=== PATIENT | female | born 1950 | race African-American/Black ===

== ENCOUNTER → 2017-01-26 | Outpatient (CLI) | payer OTHER, MEDICAID ==
[2016-06-29 14:38] VITALS: BP 152/84
[2017-01-26 12:08] LABS: BASOPHILS % (AUTO) 0.9 % (0.2-1.0); EOSINOPHILS # (AUTO) 0.1 x10^3/uL (0.0-0.2); EOSINOPHILS % (AUTO) 2.4 % (0.9-2.9); HEMOGLOBIN 13.5 g/dL (12.0-16.0); LYMPHOCYTES # (AUTO) 1.4 X10^3/uL (1.3-2.9); LYMPHOCYTES % (AUTO) 33.9 % (21.0-51.0); MEAN CORPUSCULAR HEMOGLOBIN 32.1 pg (27.0-34.0); MEAN CORPUSCULAR HGB CONC 34.6 g/dL (33.0-35.0); MEAN CORPUSCULAR VOLUME 92.9 fL (80.0-100.0); MONOCYTES # (AUTO) 0.3 x10^3/uL (0.3-0.8); NEUTROPHILS # (AUTO) 2.2 x10^3/uL (2.2-4.8); NEUTROPHILS % (AUTO) 54.8 % (42.0-75.0); PLATELET COUNT 268 X10^3/uL (150.0-450.0); RED BLOOD COUNT 4.19 X10^6/uL (3.5-5.4); RED CELL DISTRIBUTION WIDTH 13.5 % (11.6-16.5); WHITE BLOOD COUNT 4.1 X10^3/uL (3.6-10.0)
[2017-01-26 12:26] LABS: ALANINE AMINOTRANSFERASE 22 Units/L (12-78); ALBUMIN 3.6 g/dL (3.4-5.0); ALKALINE PHOSPHATASE 74 Units/L (46-116); ASPARTATE AMINO TRANSFERASE 17 Units/L (15-37); BLOOD UREA NITROGEN 13 mg/dL (7-18); CALCIUM 9.1 mg/dL (8.5-10.1); CARBON DIOXIDE 27.5 mmol/L (21-32); CHLORIDE 103 mmol/L (98-107); CHOL/HDL RATIO 5.6 (0.0-5.0); CHOLESTEROL 235 mg/dL (0-200); CREATININE 0.81 mg/dL (0.55-1.02); GLUCOSE 104 mg/dL (65-99); HDL CHOLESTEROL 42 mg/dL (40-60); SODIUM 140 mmol/L (136-145); TOTAL PROTEIN 7.5 g/dL (6.4-8.2); TRIGLYCERIDES 192 mg/dL (0-150); eGFR BLACK RACES > 60 (>60); eGFR NON BLACK RACES > 60 (>60)
== END ==
LOC: LAB 11:12
PROVIDERS: ATTEND Obstetrics & Gynecology Obstetrics
DX: I10 Essential (primary) hypertension (principal)
CPT/HCPCS: 36415; 80053; 80061; 83525; 85025

== ENCOUNTER 2017-04-06 11:19 | Emergency (ER) | payer OTHER, MEDICAID ==
[2017-04-06 11:24] VITALS: BP 138/84
--- NOTE | 2017-04-06 12:22 | DR.GENAD ---
HPI - PCP Primary Care Physician: dmitriy Davila HPI Comment HPI Comment: PAIN WORSE TODAY. - Complaint/Symptoms Chief Complaint Doctors Comments: PATIENT INJURED LEFT KNEE 3 DAYS AGO. HEARD IT POP. INCREASING PAIN AND SWELLING SINCE. Chief Complaint:: patient stated she heard a pop in her left leg 3 days ago and it has been hurting. - Nurses notes reviewed Nurses Notes Review: Yes - Source History Provided: Patient - Mode of Arrival Mode of Arrival: Ambulatory - Timing Onset of Chief Complaint: 04/03/17 Came on: Suddenly - Duration Duration: Constant Duration: Days - Severity Severity: Moderate PMH - PMH Past Medical History: Yes Past Medical History: Anxiety, Hypertension Past Surgical History: Yes Surgical History: Hysterectomy, Ortho Surgery - Family History History of Family Medical Conditions: Yes Family Medical History: [place], Hypertension - Social History Does patient currently use any type of tobacco product: Yes Have you used tobacco products in the last 12 months: Yes Type of Tobacco Use: Cigarettes How many years tobacco product used: 3 Does any household member use tobacco: No Alcohol Use: None Do you use any recreational Drugs:: No Lives With: Family Lives Where: Home - infectious screening In the last 2 months have you had wt loss of >10#?: NO Have you had fever, night sweats or hemotysis?: No Have you traveled outside the country in the last 6 months?: No Isolation: Standard ROS - Review of Systems Constitutional: No Symptoms Reported Eyes: No Symptoms Reported ENTM: No Symptoms Reported Respiratoy: No Symptoms Reported Cardiovascular: No Symptoms Reported Gastrointestinal/Abdominal: No Symptoms Reported Genitourinary: No Symptoms Reported Neurological: No Symptoms Reported Musculoskeletal: Left, Knee Integumentary: No Symptoms Reported Hematologic/Lymphatic: No Symptoms Reported Endocrine: No Symptoms Reported All Other Systems: Reviewed and Negative PE - Vital Signs Vitals: Temperature 98.4 F Pulse Rate 70 Respiratory Rate 16 Blood Pressure 138/84 O2 Sat by Pulse Oximetry 100 - General Limitations: No Limitations General Appearance: Alert - Head Head Exam: Normal Inspection - Eyes Eye exam: Normal Appearance - ENT ENT Exam: Normal External Ear Exam External Ear Exam: Normal External Inspection TM/Canal Exam: Bilateral Normal Mouth Exam: Normal Inspection Throat Exam: Normal Inspection - Neck Neck Exam: Normal Inspection, Trachea Midline - Chest Chest Inspection: Symmetric Chest Wall Rise - Respiratory Respiratory Exam: Normal Lung Sounds Bilat Respiratory Exam: Bilateral Clear to Auscultation - Cardiovascular Cardiovascular Exam: Regular Rate, Normal Rhythm, Normal Heart Sounds - Abdominal Exam Abdominal Exam: Normal Inspection - Extremities Extremities Exam: Tenderness (LEFT KNEE), Joint Swelling (LEFT KNEE.) - Back Back Exam: Normal Inspection - Neurologic Neurological Exam: Alert, Oriented X3 - Psychiatric Psychiatric Exam: Normal Affect, Normal Mood - Skin Skin Exam: Normal Color MDM - Differential Diagnosis Differential Diagnosis: KNEE SPRAIN, KNEE FRACTURE Course - Treatment Treatment: SEE ORDERS. IM MED IMPROVE PAIN. - Education/Counseling Education/Counseling: Patient, Education Educated On: Treatment, Diagnosis, Needs for Follow Up ROR - XRAY XRAY Interpreted by: Radiologist XRAY Findings: REPORT DISCUSS WITH PATIENT. - Diagnosis Discharge Problem: Left knee sprain Qualifiers: Encounter type: initial encounter Involved ligament of knee: unspecified ligament Qualified Code(s): S83.92XA - Sprain of unspecified site of left knee, initial encounter - Discharge Plan Condition: Stable Prescriptions: Ibuprofen [MOTRIN TAB 600 MG *] 600 mg PO TID PRN #20 tab PRN Reason: Pain/Inflammation Tramadol HCl 50 mg PO TID PRN #15 tablet PRN Reason: - Follow ups/Referrals Follow ups/Referrals: VINICIO GUNTER [Primary Care Provider] - 3 days - Instructions Instructions: Knee Pain, [id number] Additional Instructions: RETURN TO ED IF WORSE. YOU ALSO HAVE DEGENERATIVE CHANGES IN LEFT KNEE.
[2017-04-06] MEDS ORDERED: TORADOL 60 MG VIAL IM ONE (12:30)
[2017-04-06] MEDS ORDERED: TORADOL 60 MG VIAL ONE (12:45)
--- NOTE | 2017-04-06 13:38 | RAD ---
Left knee, two views Indication: Knee pain and swelling Comparison: None Findings: No acute fracture or malalignment is identified. There is moderately advanced degenerative narrowing of the lateral femorotibial compartment with prominent marginal osteophyte formation. There is no significant joint effusion. Soft tissues are unremarkable. Impression: Degenerative changes, as above. Reported By:
== END 2017-04-06 14:12 | disposition home or self-care (01) ==
LOC: ER 11:59
DX: S83.92XA Sprain of unspecified site of left knee, initial encounter (principal); Y33.XXXA Other specified events, undetermined intent, initial encounter; Y92.9 Unspecified place or not applicable
CPT/HCPCS: 73560; 96372; 99282; 99283; J1885

== ENCOUNTER 2022-07-20 11:54 | Observation (INO) ==
--- NOTE | 2022-07-20 12:14 | DR.EXTPAIN ---
HPI Time seen Time Seen by Provider: 07/20/22 12:14 PCP Primary Care Physician: juan c Complaint/Symptoms Chief Complaint Doctor Comments: 72 y/o female presents for evaluation. Not feeling well x 2 days. Having palpitations, dizziness, some chest discomfort. Describes discomfort as pressure sensation, across the anterior chest, does not radiate. Nothing makes it better, nothing makes it worse. Went to another ER 2 days ago, was d/c'd. Sees Dr Parish for cardiology, denies prior h/o atrial fibrillation. Chief Complaint:: pt states her heart has been double beating since 07/18/22 pt states she was seen in [place] er on 07/18/22 for the same and states its has been happening ever since. pt states she has been shakey and feeling numb in the legs and face but states its probley due to her anxiety. no pain just pressure on left side COVID-19 Coronavirus risk:travel/contact w/high risk person: No Has patient experienced Coronavirus symptoms: No Nurses notes reviewed Nurses Notes Review: Yes Source History Provided: Patient Mode of arrival Mode of Arrival: Ambulatory Timing Onset of Chief Complaint: 07/18/22 PMH PMH Past Medical History: Yes Past Medical History: Anxiety, Migraines and Hypertension Past Surgical History: Yes Surgical History: Hysterectomy and Ortho Surgery Family History History of Family Medical Conditions: Yes Family Medical History: Diabetes Mellitus, [place], Coronary Artery Disease, Heart Failure, Sudden Cardiac and Hypertension Social History Does patient currently use any type of tobacco product: No Have you used tobacco products in the last 12 months: No Type of Tobacco Use: None Does any household member use tobacco: No Alcohol Use: None Do you use any recreational Drugs:: No Lives With: Family Lives Where: Home Travel Risk Coronavirus risk:travel/contact w/high risk person: No Has patient experienced Coronavirus symptoms: No Infectious screening In the last 2 months have you had wt loss of >10#?: NO Have you had fever, night sweats or hemotysis?: No Have you traveled outside the country in the last 6 months?: No Isolation: Standard ROS Review of Systems Constitutional: Weakness Eyes: No Symptoms Reported ENTM: No Symptoms Reported Respiratoy: Non-Productive Cough Cardiovascular: Chest Pain and Palpitations Gastrointestinal/Abdominal: Nausea Genitourinary: No Symptoms Reported Neurological: Weakness and Dizziness Musculoskeletal: No Symptoms Reported Integumentary: No Symptoms Reported Hematologic/Lymphatic: No Symptoms Reported Psychiatric: No Symptoms Reported All Other Systems: Reviewed and Negative PE Vital Signs Vitals: Temperature 98.0 F Pulse Rate 62 Respiratory Rate 25 Blood Pressure [Left Arm] 126/78 Blood Pressure 142/81 O2 Sat by Pulse Oximetry 100 General General Appearance: Alert and In No Apparent Distress Eyes Eye exam: PERRL and EOMI ENT ENT Exam: Mucous Membranes Moist Neck Neck Exam: Normal Inspection; negative Tenderness Respiratory Respiratory Exam: Normal Lung Sounds Bilat; negative Accessory Muscle Use or Respiratory Distress Cardiovascular Cardiovascular Exam: Irregular Rhythm and Normal Heart Sounds Abdominal Exam Abdominal Exam: Normal Inspection, Normal Bowel Sounds and Soft; negative Tenderness Extremities Extremities Exam: Normal Inspection and Full ROM; negative Edema Back Back Exam: Normal Inspection Neurological Neurological Exam: Alert, Oriented X3 and CN II-XII Intact; negative Motor Sensory Deficit Skin Skin Exam: Warm and Dry COURSE Treatment Treatment: 72 y/o female not feeling well x 2 days. + lightheaded, dizzy. Having some chest discomfort. Pt in atrial fibrillation on arrival. No prior h/o afib. W/u initiated. Pt given IV fluids. 1437 - has remained mostly in afib, flips back to NSR at times. Labs overall acceptable. Recommend admission, to keep on monitor. Will consult with Dr Parish tomorrow. Discussed with Dr Astudillo, accepts the observation admission. ROR Labs Reviewed Laboratory Results Reviewed?: Yes Result Diagrams: 07/20/22 12:26 07/20/22 12:26 Laboratory: WBC 4.9 X10^3/uL (3.6-10.0) 07/20/22 12:26 RBC 4.09 X10^6/uL (3.5-5.4) 07/20/22 12:26 Hgb 13.3 g/dL (12.0-16.0) 07/20/22 12:26 Hct 38.8 % (36.0-47.0) 07/20/22 12:26 MCV 94.9 fL (80.0-100.0) 07/20/22 12:26 MCH 32.6 pg (27.0-34.0) 07/20/22 12:26 MCHC 34.4 g/dL (33.0-35.0) 07/20/22 12:26 RDW 13.0 % (11.6-16.5) 07/20/22 12: Plt Count 252 X10^3/uL (150.0-450.0) 07/20/22 12:26 MPV 8.6 fL (7.4-11.0) 07/20/22 12:26 Neut % (Auto) 75.5 % (42.0-75.0) H 07/20/22 12:26 Lymph % (Auto) 19.0 % (21.0-51.0) L 07/20/22 12:26 [place] % (Auto) 2.9 % (0.0-13.0) 07/20/22 12:26 Eos % (Auto) 1.1 % (0.9-2.9) 07/20/22 12: Baso % (Auto) 1.5 % (0.2-1.0) H 07/20/22 12:26 Neut # (Auto) 3.7 x10^3/uL (2.2-4.8) 07/20/22 12:26 Lymph # (Auto) 0.9 X10^3/uL (1.3-2.9) L 07/20/22 12:26 [place] # (Auto) 0.1 x10^3/uL (0.3-0.8) L 07/20/22 12:26 Eos # (Auto) 0.1 x10^3/uL (0.0-0.2) 07/20/22 12: Baso # (Auto) 0.1 X10^3/uL (0.0-0.1) 07/20/22 12:26 Absolute Nucleated RBC 0.0 /100WBC 07/20/22 12:26 PT 14.4 SECONDS (11.8-14.3) 07/20/22 12:26 INR Target Range - 07/20/22 12: INR 1.15 (0.8-1.3) 07/20/22 12:26 APTT 26.7 SECONDS (22.9-36.5) 07/20/22 12:26 PTT Comment - 07/20/22 12:26 Sodium 143 mmol/L (136-145) 07/20/22 12:26 Corrected Sodium TNP 07/20/22 12:26 Potassium 3.6 mmol/L (3.5-5.1) 07/20/22 12:26 Chloride 106 mmol/L (98-107) 07/20/22 12:26 Carbon Dioxide 26.4 mmol/L (21-32) 07/20/22 12:26 BUN 9 mg/dL (7-18) 07/20/22 12:26 Creatinine 0.83 mg/dL (0.55-1.02) 07/20/22 12:26 Est GFR (MDRD) Af Amer > 60 (>60) 07/20/22 12:26 Est GFR (MDRD) Non-Af > 60 (>60) 07/20/22 12:26 Glucose 105 mg/dL (65-99) H 07/20/22 12:26 Calcium 8.9 mg/dL (8.5-10.1) 07/20/22 12:26 Corrected Calcium TNP 07/20/22 12:26 Total Bilirubin 0.10 mg/dL (0.2-1.0) L 07/20/22 12:26 AST 18 Units/L (15-37) 07/20/22 12:26 ALT 14 Units/L (12-78) 07/20/22 12:26 Alkaline Phosphatase 72 Units/L (46-116) 07/20/22 12:26 Troponin I High Sens 4.6 ng/L (4.0-60.0) 07/20/22 12:26 Total Protein 7.2 g/dL (6.4-8.2) 07/20/22 12:26 Albumin 3.7 g/dL (3.4-5.0) 07/20/22 12:26 Globulin 3.5 g/dL (2.5-4.5) 07/20/22 12:26 Albumin/Globulin Ratio 1.1 Ratio (1.1-2.1) 07/20/22 12:26 Lipase 56 Units/L (73-393) L 07/20/22 12:26 TSH 3rd Generation 1.423 uIU/mL (0.358-3.74) 07/20/22 12:26 Specimen Type Clean catch urine 07/20/22 12:55 Urine Color Yellow (YELLOW) 07/20/22 12:55 Urine Appearance Clear (CLEAR) 07/20/22 12:55 Urine pH 5.0 (5.0 - 8.0) 07/20/22 12:55 Ur Specific [place] 1.010 (1.000-1.030) 07/20/22 12:55 Urine Protein Negative (NEGATIVE) 07/20/22 12:55 Urine Glucose (UA) Negative (NEGATIVE) 07/20/22 12:55 Urine Ketones Negative (NEGATIVE) 07/20/22 12:55 Urine Blood 1+ (NEGATIVE) 07/20/22 12:55 Urine Nitrite Negative (NEGATIVE) 07/20/22 12:55 Urine Bilirubin Negative (NEGATIVE) 07/20/22 12:55 Urine Urobilinogen Normal (NORMAL) 07/20/22 12:55 Ur Leukocyte Esterase Negative (NEGATIVE) 07/20/22 12:55 Urine RBC 3-5 /HPF (0-3) A 07/20/22 12:55 Urine WBC None seen /HPF (0-5) 07/20/22 12:55 Ur Squamous Epith Cells Rare /HPF (NEGATIVE) 07/20/22 12:55 Urine Bacteria Trace /HPF (NEGATIVE) 07/20/22 12:55 Ur Culture Indicated? No/not indicated 07/20/22 12:55 Labs acceptable. EKG Rate: 61 Barre: Normal Rhythm: NSR ST: Nonsp Opioid Opioid Risk Tool Age ([place] if 16-45): No History of Preadolescent Sexual Abuse: No Total: 0 Total Score Risk Category: Low Risk Copyright: Garrett EVANS predicting aberrant behaviors Discharge Plan Diagnosis Discharge Problem: Paroxysmal atrial fibrillation Discharge Plan Patient Disposition: 09 ADMITTED INPATIENT Condition: Stable Orders to Discharge Patient Discharge Orders: Transfer (Routine); Ordered 07/20/22 Ordered By: Jalil Martinez
[2022-07-20 12:41] LABS: BASOPHILS # (AUTO) 0.1 X10^3/uL (0.0-0.1); BASOPHILS % (AUTO) 1.5 % (0.2-1.0); EOSINOPHILS # (AUTO) 0.1 x10^3/uL (0.0-0.2); EOSINOPHILS % (AUTO) 1.1 % (0.9-2.9); HEMATOCRIT 38.8 % (36.0-47.0); HEMOGLOBIN 13.3 g/dL (12.0-16.0); LYMPHOCYTES # (AUTO) 0.9 X10^3/uL (1.3-2.9); MEAN CORPUSCULAR HEMOGLOBIN 32.6 pg (27.0-34.0); MEAN CORPUSCULAR HGB CONC 34.4 g/dL (33.0-35.0); MEAN CORPUSCULAR VOLUME 94.9 fL (80.0-100.0); MEAN PLATELET VOLUME 8.6 fL (7.4-11.0); MONOCYTES # (AUTO) 0.1 x10^3/uL (0.3-0.8); MONOCYTES % (AUTO) 2.9 % (0.0-13.0); NEUTROPHILS # (AUTO) 3.7 x10^3/uL (2.2-4.8); NEUTROPHILS % (AUTO) 75.5 % (42.0-75.0); RED BLOOD COUNT 4.09 X10^6/uL (3.5-5.4); WHITE BLOOD COUNT 4.9 X10^3/uL (3.6-10.0)
[2022-07-20 12:45] LABS: INR 1.15 (0.8-1.3)
[2022-07-20 12:52] LABS: ALANINE AMINOTRANSFERASE 14 Units/L (12-78); ALBUMIN 3.7 g/dL (3.4-5.0); ALKALINE PHOSPHATASE 72 Units/L (46-116); ASPARTATE AMINO TRANSFERASE 18 Units/L (15-37); BLOOD UREA NITROGEN 9 mg/dL (7-18); CALCIUM 8.9 mg/dL (8.5-10.1); CARBON DIOXIDE 26.4 mmol/L (21-32); CHLORIDE 106 mmol/L (98-107); CREATININE 0.83 mg/dL (0.55-1.02); LIPASE 56 Units/L (73-393); SODIUM 143 mmol/L (136-145); TOTAL PROTEIN 7.2 g/dL (6.4-8.2); eGFR NON BLACK RACES > 60 (>60)
[2022-07-20 13:19] LABS: BILIRUBIN,URINE NEGATIVE (NEGATIVE); BLOOD/HEMOGLOBIN,URINE 1+ (NEGATIVE); GLUCOSE, URINE NEGATIVE (NEGATIVE); KETONES,URINE NEGATIVE (NEGATIVE); LEUKOCYTE ESTERASE ,URINE NEGATIVE (NEGATIVE); NITRITES,URINE NEGATIVE (NEGATIVE); PROTEIN,URINE NEGATIVE (NEGATIVE); UROBILINOGEN,URINE NORMAL (NORMAL)
[2022-07-20 13:26] LABS: APPEARANCE,URINE CLEAR (CLEAR); COLOR,URINE YELLOW (YELLOW)
[2022-07-20 13:27] LABS: BACTERIA,URINE TRACE /HPF (NEGATIVE); SQUAMOUS EPITHELIAL CELL,UR RARE /HPF (NEGATIVE)
--- NOTE | 2022-07-20 14:40 | EKG ---
Test Reason : palpitations Blood Pressure : */* mmHG Vent. Rate : 61 BPM Atrial Rate : 61 BPM P-R Int : 164 ms QRS Dur : 80 ms QT Int : 450 ms P-R-T Axes : 34 -11 -4 degrees QTc Int : 453 ms Normal sinus rhythm Nonspecific ST and T wave abnormality Abnormal ECG No previous ECGs available Confirmed by Ag Parish ([id number]) on 07/21/2022 10:01:00 AM Referred By: Confirmed By: Ag Parish
[2022-07-20] MEDS ORDERED: ANTIVERT TAB 25 MG PO PRN (15:17)
[2022-07-20] MEDS ORDERED: PATIENT'S HOME MEDICATION (Alprazolam 0.5 mg tablet) PO PRN (15:17)
--- NOTE | 2022-07-20 15:24 | RAD ---
HISTORYHeart double beatingSTUDYAP chestCOMPARISONAugust 2021FINDINGSHeart size normal with clear lungs and pleural spaces. There is no evidence for inflammatory disease or developing CHF.IMPRESSIONNo change; no acute findings.Electronically signed by: TIMOTHY CARRINGTON (Jul 20, 2022 15:23:31)
[2022-07-20] MEDS: FIORICET TAB PO PRN ×2 (16:13→23:33)
[2022-07-20] MEDS: XANAX PO PRN (16:13)
[2022-07-20] MEDS: ELIQUIS PO SCH ×2 (16:21→20:21)
[2022-07-20] MEDS: CARDIZEM CD 120 MG 24-HR PO SCH (16:21)
--- NOTE | 2022-07-20 16:21 | DR.H&P ---
H&P History & Physical for Day of: H&P Date: 07/20/22 Chief Complaint Chief Complaint: Chest pain Allergies Allergies Allergy/AdvReac Type Severity Reaction Status Date / Time codeine Allergy Verified 01/30/20 12: iodine Allergy Verified 01/30/20 12: sumatriptan [From Imitrex] Allergy Verified 01/30/20 12:26 History of Present Illness History of Present Illness: This is a pleasant 72-year-old black female who presented to the emergency department here [facility] today with a 2-day history of substernal pressure and heart palpitations. She feels like her heart is double beating and she feels short of breath and feels like she has pressure on the left side of her chest. She went to the emergency department 2 days ago in [place], [place] with similar symptoms but they did not keep her. She reports that her technician support engineer is Dr. Parish and that she has no previous diagnosis of atrial fibrillation. EKG was done and confirmed atrial fibrilla tion in the emergency department. Her troponin was checked and was negative. Past Medical History Past Medical History: Anxiety, Migraines and Hypertension Past Surgical History Surgical History: Hysterectomy and Other Family History Family Medical History: Hypertension Social History Does patient currently use any type of tobacco product: No Have you used tobacco products in the last 12 months: No Type of Tobacco Use: None Does any household member use tobacco: No Alcohol Use: None Drug Use: None Medications Home Medications: codeine Allergy (Verified 01/30/20 12:26) iodine Allergy (Verified 01/30/20 12:) sumatriptan [From Imitrex] Allergy (Verified 01/30/20 12:) Labs Result Diagrams: 07/20/22 12:26 07/20/22 12: Labs: Laboratory WBC 4.9 X10^3/uL (3.6-10.0) 07/20/22 12: RBC 4.09 X10^6/uL (3.5-5.4) 07/20/22 12: Hgb 13.3 g/dL (12.0-16.0) 07/20/22 12: Hct 38.8 % (36.0-47.0) 07/20/22 12: MCV 94.9 fL (80.0-100.0) 07/20/22 12:26 MCH 32.6 pg (27.0-34.0) 07/20/22 12: MCHC 34.4 g/dL (33.0-35.0) 07/20/22 12: RDW 13.0 % (11.6-16.5) 07/20/22 12: Plt Count 252 X10^3/uL (150.0-450.0) 07/20/22 12:26 MPV 8.6 fL (7.4-11.0) 07/20/22 12:26 Neut % (Auto) 75.5 % (42.0-75.0) H 07/20/22 12: Lymph % (Auto) 19.0 % (21.0-51.0) L 07/20/22 12: [place] % (Auto) 2.9 % (0.0-13.0) 07/20/22 12: Eos % (Auto) 1.1 % (0.9-2.9) 07/20/22 12:26 Baso % (Auto) 1.5 % (0.2-1.0) H 07/20/22 12:26 Neut # (Auto) 3.7 x10^3/uL (2.2-4.8) 07/20/22 12:26 Lymph # (Auto) 0.9 X10^3/uL (1.3-2.9) L 07/20/22 12:26 [place] # (Auto) 0.1 x10^3/uL (0.3-0.8) L 07/20/22 12:26 Eos # (Auto) 0.1 x10^3/uL (0.0-0.2) 07/20/22 12:26 Baso # (Auto) 0.1 X10^3/uL (0.0-0.1) 07/20/22 12:26 Absolute Nucleated RBC 0.0 /100WBC 07/20/22 12: PT 14.4 SECONDS (11.8-14.3) 07/20/22 12: INR Target Range - 07/20/22 12: INR 1.15 (0.8-1.3) 07/20/22 12:26 APTT 26.7 SECONDS (22.9-36.5) 07/20/22 12:26 PTT Comment - 07/20/22 12:26 Sodium 143 mmol/L (136-145) 07/20/22 12:26 Corrected Sodium TNP 07/20/22 12:26 Potassium 3.6 mmol/L (3.5-5.1) 07/20/22 12:26 Chloride 106 mmol/L (98-107) 07/20/22 12:26 Carbon Dioxide 26.4 mmol/L (21-32) 07/20/22 12:26 BUN 9 mg/dL (7-18) 07/20/22 12:26 Creatinine 0.83 mg/dL (0.55-1.02) 07/20/22 12:26 Est GFR (MDRD) Af Amer > 60 (>60) 07/20/22 12:26 Est GFR (MDRD) Non-Af > 60 (>60) 07/20/22 12:26 Glucose 105 mg/dL (65-99) H 07/20/22 12:26 Calcium 8.9 mg/dL (8.5-10.1) 07/20/22 12:26 Corrected Calcium TNP 07/20/22 12:26 Total Bilirubin 0.10 mg/dL (0.2-1.0) L 07/20/22 12:26 AST 18 Units/L (15-37) 07/20/22 12:26 ALT 14 Units/L (12-78) 07/20/22 12:26 Alkaline Phosphatase 72 Units/L (46-116) 07/20/22 12:26 Troponin I High Sens 4.6 ng/L (4.0-60.0) 07/20/22 12:26 Total Protein 7.2 g/dL (6.4-8.2) 07/20/22 12:26 Albumin 3.7 g/dL (3.4-5.0) 07/20/22 12:26 Globulin 3.5 g/dL (2.5-4.5) 07/20/22 12:26 Albumin/Globulin Ratio 1.1 Ratio (1.1-2.1) 07/20/22 12:26 Lipase 56 Units/L (73-393) L 07/20/22 12:26 TSH 3rd Generation 1.423 uIU/mL (0.358-3.74) 07/20/22 12:26 Specimen Type Clean catch urine 07/20/22 12:55 Urine Color Yellow (YELLOW) 07/20/22 12:55 Urine Appearance Clear (CLEAR) 07/20/22 12:55 Urine pH 5.0 (5.0 - 8.0) 07/20/22 12:55 Ur Specific [place] 1.010 (1.000-1.030) 07/20/22 12:55 Urine Protein Negative (NEGATIVE) 07/20/22 12:55 Urine Glucose (UA) Negative (NEGATIVE) 07/20/22 12:55 Urine Ketones Negative (NEGATIVE) 07/20/22 12:55 Urine Blood 1+ (NEGATIVE) 07/20/22 12:55 Urine Nitrite Negative (NEGATIVE) 07/20/22 12:55 Urine Bilirubin Negative (NEGATIVE) 07/20/22 12:55 Urine Urobilinogen Normal (NORMAL) 07/20/22 12:55 Ur Leukocyte Esterase Negative (NEGATIVE) 07/20/22 12:55 Urine RBC 3-5 /HPF (0-3) A 07/20/22 12:55 Urine WBC None seen /HPF (0-5) 07/20/22 12:55 Ur Squamous Epith Cells Rare /HPF (NEGATIVE) 07/20/22 12:55 Urine Bacteria Trace /HPF (NEGATIVE) 07/20/22 12:55 Ur Culture Indicated? No/not indicated 07/20/22 12:55 Review of Systems Constitutional: No Symptoms Reported Eyes: No Symptoms Reported ENT: No Symptoms Reported Respiratory: No Symptoms Reported Cardiovascular: No Symptoms Reported Gastrointestinal: No Symptoms Reported Genitourinary: No Symptoms Reported Musculoskeletal: No Symptoms Reported Skin: No Symptoms Reported Neurological: No Symptoms Reported Physical Exam Vital Signs: Temperature 98.7 F Pulse Rate [Apical] 60 Pulse Rate 55 Respiratory Rate 22 Blood Pressure [Left Arm] 157/88 Blood Pressure 125/71 O2 Sat by Pulse Oximetry 100 Oriented: Normal Eyes: Normal Respiratory: Clear Throughout Cardiovascular: Normal : Normal Auscultation: Bowel Sounds: Normal Palpation: Normal Tenderness: Normal Skin: Normal Musculoskeletal: Normal Psychiatric: Normal Mood Description: Calm Affect: Normal Speech Pattern: Clear and Appropriate Assessment/Plan (1) Paroxysmal atrial fibrillation: Status: Acute Plan: I will start the patient on Cardizem CD 120 mg p.o. daily along with Eliquis 5 mg p.o. twice daily. I will have Dr. Parish, cardiology see the patient tomorrow when he is here [facility]. (2) Hypertension: Status: Acute Plan: Resume patient's HCTZ. (3) Generalized anxiety disorder: Status: Acute Plan: Resume patient's Xanax 0.5 mg 3 times daily as needed anxiety. Review H&P Reviewed: Yes Patient was examined?: Yes
[2022-07-20] MEDS: APRESOLINE TAB 25 MG PO SCH (22:14)
[2022-07-20] MEDS ORDERED: MAGNESIUM SULFATE 1 GRAM/100 mL PREMIX 1 G/100 ML BAG IV PRN (23:53)
[2022-07-20] MEDS ORDERED: K-RIDER 10 MEQ/NS 100 ML 10 MEQ/100 ML BAG IV PRN (23:53)
[2022-07-20] MEDS ORDERED: K-DUR TAB 20 MEQ PO PRN (23:53)
[2022-07-20] MEDS ORDERED: MICRO K EXTEN CAP 10 MEQ PO PRN (23:53)
[2022-07-20] MEDS ORDERED: KLOR-CON PO PRN (23:53)
[2022-07-20] MEDS ORDERED: POTASSIUM CHLORIDE LIQ 20 MEQ UDC PO PRN (23:53)
[2022-07-21] MEDS: APRESOLINE TAB 25 MG PO SCH (05:02)
[2022-07-21 05:24] LABS: BASOPHILS % (AUTO) 0.9 % (0.2-1.0); EOSINOPHILS # (AUTO) 0.1 x10^3/uL (0.0-0.2); EOSINOPHILS % (AUTO) 3.1 % (0.9-2.9); HEMATOCRIT 34.8 % (36.0-47.0); LYMPHOCYTES # (AUTO) 1.7 X10^3/uL (1.3-2.9); MEAN CORPUSCULAR HEMOGLOBIN 32.4 pg (27.0-34.0); MEAN CORPUSCULAR HGB CONC 34.4 g/dL (33.0-35.0); MEAN CORPUSCULAR VOLUME 94.2 fL (80.0-100.0); MEAN PLATELET VOLUME 9.1 fL (7.4-11.0); MONOCYTES # (AUTO) 0.3 x10^3/uL (0.3-0.8); MONOCYTES % (AUTO) 10.4 % (0.0-13.0); NEUTROPHILS % (AUTO) 31.6 % (42.0-75.0); RED BLOOD COUNT 3.69 X10^6/uL (3.5-5.4); RED CELL DISTRIBUTION WIDTH 13.3 % (11.6-16.5); WHITE BLOOD COUNT 3.1 X10^3/uL (3.6-10.0)
[2022-07-21 05:37] LABS: ALANINE AMINOTRANSFERASE 11 Units/L (12-78); ALBUMIN 3.1 g/dL (3.4-5.0); ALKALINE PHOSPHATASE 61 Units/L (46-116); ASPARTATE AMINO TRANSFERASE 16 Units/L (15-37); BLOOD UREA NITROGEN 9 mg/dL (7-18); CALCIUM 8.5 mg/dL (8.5-10.1); CARBON DIOXIDE 25.1 mmol/L (21-32); CHLORIDE 108 mmol/L (98-107); COR CA(FOR HYPOALB) 9.2 mg/dL (8.5-10.1); CREATININE 0.68 mg/dL (0.55-1.02); MAGNESIUM 1.9 mg/dL (2.0-2.9); SODIUM 143 mmol/L (136-145); TOTAL PROTEIN 6.1 g/dL (6.4-8.2); eGFR NON BLACK RACES > 60 (>60)
[2022-07-21 08:21] VITALS: BP 141/87
[2022-07-21] MEDS: ELIQUIS PO SCH (08:35)
[2022-07-21] MEDS: CARDIZEM CD 120 MG 24-HR PO SCH (08:36)
[2022-07-21] MEDS: FIORICET TAB PO PRN (08:36)
[2022-07-21] MEDS: XANAX PO PRN (08:51)
[2022-07-21] MEDS ORDERED: MICRO K EXTEN CAP 10 MEQ PO SCH (09:00)
[2022-07-21] MEDS ORDERED: PROzac PO SCH (09:00)
[2022-07-21] MEDS ORDERED: HYDROCHLOROTHIAZIDE 25 MG TAB PO SCH (09:00)
[2022-07-21] MEDS ORDERED: LASIX PO SCH (09:00)
--- NOTE | 2022-07-21 16:05 | PCM.DCPLAN ---
DISCHARGE SUMMARY Admission Date Date of Admission: 07/20/22 Discharge Date Discharge Date: 07/21/22 Admission Diagnoses (1) Paroxysmal atrial fibrillation: Status: Acute (2) Hypertension: Status: Acute (3) Generalized anxiety disorder: Status: Acute Discharge Diagnoses Discharge Diagnosis: 1. Paroxysmal atrial fibrillation resolved 2. Hypertension stable 3. Generalized anxiety disorder Discharge Medications Discharge Medications: Home Medication List alprazolam 0.5 mg tablet 0.5 mg PO Q8H PRN #30 tabs 07/21/22 [Rx] diltiazem HCl 120 mg capsule,extended release 24 hr 120 mg PO DAILY #30 caps 07/21/22 [Rx] Prescriptions: alprazolam TYREEDEJON diltiazem HCl TYREEDEJON Hospital Course Vital Signs: Temperature 97.5 F Pulse Rate [Brachial] 97 Pulse Rate [Apical] 60 Pulse Rate 67 Respiratory Rate 12 Blood Pressure [Left Arm] 141/87 Blood Pressure 123/76 O2 Sat by Pulse Oximetry 99 Latest Lab Results: Laboratory Last Values WBC 3.1 X10^3/uL (3.6-10.0) L 07/21/22 04:15 RBC 3.69 X10^6/uL (3.5-5.4) 07/21/22 04:15 Hgb 12.0 g/dL (12.0-16.0) 07/21/22 04:15 Hct 34.8 % (36.0-47.0) L 07/21/22 04:15 MCV 94.2 fL (80.0-100.0) 07/21/22 04:15 MCH 32.4 pg (27.0-34.0) 07/21/22 04:15 MCHC 34.4 g/dL (33.0-35.0) 07/21/22 04:15 RDW 13.3 % (11.6-16.5) 07/21/22 04:15 Plt Count 236 X10^3/uL (150.0-450.0) 07/21/22 04:15 MPV 9.1 fL (7.4-11.0) 07/21/22 04:15 Neut % (Auto) 31.6 % (42.0-75.0) L 07/21/22 04:15 Lymph % (Auto) 54.0 % (21.0-51.0) H 07/21/22 04:15 [place] % (Auto) 10.4 % (0.0-13.0) 07/21/22 04:15 Eos % (Auto) 3.1 % (0.9-2.9) H 07/21/22 04:15 Baso % (Auto) 0.9 % (0.2-1.0) 07/21/22 04:15 Neut # (Auto) 1.0 x10^3/uL (2.2-4.8) L 07/21/22 04:15 Lymph # (Auto) 1.7 X10^3/uL (1.3-2.9) 07/21/22 04:15 [place] # (Auto) 0.3 x10^3/uL (0.3-0.8) 07/21/22 04:15 Eos # (Auto) 0.1 x10^3/uL (0.0-0.2) 07/21/22 04:15 Baso # (Auto) 0.0 X10^3/uL (0.0-0.1) 07/21/22 04:15 Absolute Nucleated RBC 0.1 /100WBC 07/21/22 04:15 PT 14.4 SECONDS (11.8-14.3) 07/20/22 12:26 INR Target Range - 07/20/22 12:26 INR 1.15 (0.8-1.3) 07/20/22 12:26 APTT 26.7 SECONDS (22.9-36.5) 07/20/22 12:26 PTT Comment - 07/20/22 12:26 Sodium 143 mmol/L (136-145) 07/21/22 04:15 Corrected Sodium TNP 07/21/22 04:15 Potassium 3.4 mmol/L (3.5-5.1) L 07/21/22 04:15 Chloride 108 mmol/L (98-107) H 07/21/22 04:15 Carbon Dioxide 25.1 mmol/L (21-32) 07/21/22 04:15 BUN 9 mg/dL (7-18) 07/21/22 04:15 Creatinine 0.68 mg/dL (0.55-1.02) 07/21/22 04:15 Est GFR (MDRD) Af Amer > 60 (>60) 07/21/22 04:15 Est GFR (MDRD) Non-Af > 60 (>60) 07/21/22 04:15 Glucose 86 mg/dL (65-99) 07/21/22 04:15 Calcium 8.5 mg/dL (8.5-10.1) 07/21/22 04:15 Corrected Calcium 9.2 mg/dL (8.5-10.1) 07/21/22 04:15 Magnesium 1.9 mg/dL (2.0-2.9) L 07/21/22 04:15 Total Bilirubin 0.20 mg/dL (0.2-1.0) 07/21/22 04:15 AST 16 Units/L (15-37) 07/21/22 04:15 ALT 11 Units/L (12-78) L 07/21/22 04:15 Alkaline Phosphatase 61 Units/L (46-116) 07/21/22 04:15 Troponin I High Sens 4.6 ng/L (4.0-60.0) 07/20/22 12:26 Total Protein 6.1 g/dL (6.4-8.2) L 07/21/22 04:15 Albumin 3.1 g/dL (3.4-5.0) L 07/21/22 04:15 Globulin 3.0 g/dL (2.5-4.5) 07/21/22 04:15 Albumin/Globulin Ratio 1.0 Ratio (1.1-2.1) L 07/21/22 04:15 Lipase 56 Units/L (73-393) L 07/20/22 12:26 TSH 3rd Generation 1.423 uIU/mL (0.358-3.74) 07/20/22 12:26 Specimen Type Clean catch urine 07/20/22 12:55 Urine Color Yellow (YELLOW) 07/20/22 12:55 Urine Appearance Clear (CLEAR) 07/20/22 12:55 Urine pH 5.0 (5.0 - 8.0) 07/20/22 12:55 Ur Specific [place] 1.010 (1.000-1.030) 07/20/22 12:55 Urine Protein Negative (NEGATIVE) 07/20/22 12:55 Urine Glucose (UA) Negative (NEGATIVE) 01/03/23 12:55 Urine Ketones Negative (NEGATIVE) 07/20/22 12:55 Urine Blood 1+ (NEGATIVE) 07/20/22 12:55 Urine Nitrite Negative (NEGATIVE) 07/20/22 12:55 Urine Bilirubin Negative (NEGATIVE) 07/20/22 12:55 Urine Urobilinogen Normal (NORMAL) 07/20/22 12:55 Ur Leukocyte Esterase Negative (NEGATIVE) 07/20/22 12:55 Urine RBC 3-5 /HPF (0-3) A 07/20/22 12:55 Urine WBC None seen /HPF (0-5) 07/20/22 12:55 Ur Squamous Epith Cells Rare /HPF (NEGATIVE) 07/20/22 12:55 Urine Bacteria Trace /HPF (NEGATIVE) 07/20/22 12:55 Ur Culture Indicated? No/not indicated 07/20/22 12:55 Hospital Course: This is a pleasant 72-year-old black female who presented to the emergency department here [facility] today with a 2-day history of substernal pressure and heart palpitations. She feels like her heart is double beating and she feels short of breath and feels like she has pressure on the left side of her chest. She went to the emergency department 2 days ago in [place], [place] with similar symptoms but they did not keep her. She reports that her printing sales representative is Dr. Parish and that she has no previous diagnosis of atrial fibrillation. EKG was done and confirmed atrial fibrillation in the emergency department. Her troponin was checked and was negative. After I saw her she did complain of some anxiety so I will order her some Xanax. She also complained of some headaches and I will reorder Fioricet. A following morning she was doing well and no new complaints. She did feel like she said her heart was jumping around some but overall it was stable. Manager Event, Dr. Parish reviewed the patient's EKGs and rhythm strips and labs and found that the patient going out of atrial fibrillation was not anymore. He recommended stopping the Eliquis that was started on her the day before. We will continue her on the Cardizem CD 120 mg daily along with her other home medications at this time. I will also be writing her prescription of Xanax 0.5 mg 1 p.o. every 8 hours as needed anxiety #30 to go home. Cardiology recommended discharging the patient home as he already has an appointment to see her in the office as outpatient later this month. Patient be discharged home in stable condition and we will have her follow-up with her primary care physician in [place], [place] within the next 7 to 10 days.
== END 2022-07-21 11:21 | disposition home or self-care (01) ==
LOC: ICU 11:54 → ER 11:54 → ICU 15:18
PROVIDERS: ADMIT Family Medicine; ATTEND Family Medicine
DX: E78.2 Mixed hyperlipidemia; R20.0 Anesthesia of skin; F41.1 Generalized anxiety disorder; R42 Dizziness and giddiness; Z86.718 Personal history of other venous thrombosis and embolism; R94.31 Abnormal electrocardiogram [ECG] [EKG]; R07.89 Other chest pain; I10 Essential (primary) hypertension; I48.0 Paroxysmal atrial fibrillation; R51.9 Headache, unspecified